=== PATIENT | female | born 1965 | race Caucasian/White ===

== ENCOUNTER → 2021-10-28 | Outpatient (REF) | payer OTHER ==
[2021-10-28 16:41] LABS: HEMOGLOBIN A1c 5.8 %
== END ==
LOC: M SFHCWOUN 15:39
PROVIDERS: ATTEND Surgery
DX: I87.311 Chronic venous hypertension (idiopathic) with ulcer of right lower extremity (principal)

== ENCOUNTER → 2021-11-18 | Outpatient (CLI) | payer BC, OTHER | LOC: EDUNIT# 11-12 14:30 → M RAD 14:07 | PROVIDERS: ATTEND Surgery | DX: I87.313 Chronic venous hypertension (idiopathic) with ulcer of bilateral lower extremity (principal); L97.822 Non-pressure chronic ulcer of other part of left lower leg with fat layer exposed; L97.812 Non-pressure chronic ulcer of other part of right lower leg with fat layer exposed ==

== ENCOUNTER → 2022-02-09 | Outpatient (CLI) | payer BC, OTHER ==
[2022-02-09 17:42] LABS: BASO # 0.1 10^3/uL (0.0-0.2); BASO % 0.7 % (0.0-1.0); EOS # 0.1 10^3/uL (0.0-0.5); EOS % 1.3 % (0.0-3.0); LYMPH # 2.4 10^3/uL (1.5-5.0); LYMPH % 31.5 % (24.0-44.0); MEAN CORPUSCULAR HEMOGLOBIN 26.2 pg (27.0-33.0); MEAN CORPUSCULAR VOLUME 87.2 fl (80.0-96.0); MONO # 0.8 10^3/uL (0.0-0.8); MONO % 10.2 % (2.0-8.0); NEUTROPHILS # 4.3 10^3/uL (1.5-8.5); NEUTROPHILS % 55.9 % (36.0-66.0); PLATELET COUNT, AUTOMATED 206 10^3/uL (150-450); RED BLOOD COUNT 3.44 10^6/uL (4.00-5.40); WHITE BLOOD COUNT 7.6 10^3/uL (4.0-10.0)
[2022-02-09 17:54] LABS: HEMOGLOBIN A1c 6.7 %
[2022-02-09 17:59] LABS: ALBUMIN 3.1 GM/DL (3.2-5.2); BILIRUBIN,TOTAL 0.2 MG/DL (0.2-1.0); CALCIUM LEVEL 8.1 MG/DL (8.5-10.1); CREATININE FOR GFR 1.31 MG/DL (0.55-1.30); FREE T4 0.91 NG/DL (0.76-1.46); GLOMERULAR FILTRATION RATE 44.9 (>51); PERCENT SATURATION 13.1 % (13.2-45.0); POTASSIUM SERUM 4.3 MEQ/L (3.5-5.1); THYROID STIMULATING HORMONE 0.771 uIU/ML (0.358-3.740); TOTAL PROTEIN 6.7 GM/DL (6.4-8.2)
== END ==
LOC: M PLALAB 14:44
PROVIDERS: ATTEND Physician Assistant
DX: E11.622 Type 2 diabetes mellitus with other skin ulcer (principal)

== ENCOUNTER 2022-02-24 09:03 | Outpatient (CLI) | payer BC, OTHER ==
[~2022-02-24] VITALS: Ht 172.7 cm; Wt 73.0 kg
[~2022-02-24 09:03] MED LIST: ALBUTEROL SULFATE 2.5 MG/0.5 ML INH NEB SOLN INH PRN; EPINEPHrine INJ 1 MG/ML 1ML AMP IM PRN; IRON SUCROSE 175 MG in NS 100 ML IV ONE; NS 1,000 ML IV SCH; diphenhydrAMINE 50MG/ML VIAL (J1200) IV PRN; methylPREDNISolone 125MG 2ML VIAL IV PRN
[2022-02-24 09:20] VITALS: BP 164/77
[2022-02-24] MEDS ORDERED: METF750T36 PO (09:53)
[2022-02-24] MEDS ORDERED: BUPR1SUB5 SL (09:53)
[2022-02-24] MEDS ORDERED: DIAZ2TAB PO ×2 (09:53)
[2022-02-24] MEDS ORDERED: XARE20TA PO (09:53)
[2022-02-24] MEDS ORDERED: GABA-282 PO (09:53)
[2022-02-24] MEDS ORDERED: ATOR1TAB19 PO (09:53)
[2022-02-24] MEDS ORDERED: PANT40TA29 PO (09:53)
[2022-02-24] MEDS ORDERED: CITA20TA6 PO (09:54)
[2022-02-24 10:35] VITALS: BP 145/70
[2022-02-24 11:01] VITALS: BP 140/67
== END 2022-02-24 11:05 | disposition home or self-care (01) ==
LOC: M INFU 09:03
PROVIDERS: ATTEND Physician Assistant
DX: D50.9 Iron deficiency anemia, unspecified (principal); Z88.0 Allergy status to penicillin; Z91.041 Radiographic dye allergy status
CPT/HCPCS: 96365; J1756

== ENCOUNTER → 2022-03-10 | Outpatient (CLI) | payer BC, OTHER ==
[~2022-03-10] MED LIST changes: -ALBUTEROL SULFATE 2.5 MG/0.5 ML INH NEB SOLN INH PRN; +ATOR1TAB19 PO; +BUPR1SUB5 SL; +CITA20TA6 PO; +DIAZ2TAB PO; -EPINEPHrine INJ 1 MG/ML 1ML AMP IM PRN; +GABA-282 PO; -IRON SUCROSE 175 MG in NS 100 ML IV ONE; +METF750T36 PO; -NS 1,000 ML IV SCH; +PANT40TA29 PO; +XARE20TA PO; -diphenhydrAMINE 50MG/ML VIAL (J1200) IV PRN; -methylPREDNISolone 125MG 2ML VIAL IV PRN
== END ==
LOC: M RAD 14:17
PROVIDERS: ATTEND Surgery
DX: L97.812 Non-pressure chronic ulcer of other part of right lower leg with fat layer exposed (principal)

== ENCOUNTER → 2022-04-06 | Outpatient (REF) | payer OTHER | LOC: M SFHCPLAZ 09:13 | PROVIDERS: ATTEND Physician Assistant | DX: E53.8 Deficiency of other specified B group vitamins (principal) ==

== ENCOUNTER → 2022-04-06 | Outpatient (CLI) | payer BC, OTHER ==
[2022-04-06 14:59] LABS: BASO % 0.5 % (0.0-1.0); EOS # 0.1 10^3/uL (0.0-0.5); EOS % 1.2 % (0.0-3.0); HEMATOCRIT 24.6 % (36.0-47.0); HEMOGLOBIN 7.4 g/dl (12.0-15.5); LYMPH # 1.7 10^3/uL (1.5-5.0); LYMPH % 21.4 % (24.0-44.0); MEAN CORPUSCULAR HEMOGLOBIN 26.8 pg (27.0-33.0); MEAN CORPUSCULAR HGB CONC 30.1 g/dl (32.0-36.5); MEAN CORPUSCULAR VOLUME 89.1 fl (80.0-96.0); MONO # 0.7 10^3/uL (0.0-0.8); MONO % 8.8 % (2.0-8.0); NEUTROPHILS # 5.3 10^3/uL (1.5-8.5); NEUTROPHILS % 67.7 % (36.0-66.0); PLATELET COUNT, AUTOMATED 216 10^3/uL (150-450); RED BLOOD COUNT 2.76 10^6/uL (4.00-5.40); WHITE BLOOD COUNT 7.8 10^3/uL (4.0-10.0)
[2022-04-06 16:16] LABS: IRON (FE) 59 UG/DL (50-170)
[2022-04-06 16:50] LABS: VITAMIN B12 LEVEL 1102 PG/ML (247-911)
== END ==
LOC: M PLALAB 09:43
PROVIDERS: ATTEND Physician Assistant
DX: E53.8 Deficiency of other specified B group vitamins (principal)

== ENCOUNTER → 2022-04-26 | Outpatient (REF) | payer BC, OTHER ==
[2022-04-26 18:12] LABS: BASO % 0.7 % (0.0-1.0); EOS # 0.1 10^3/uL (0.0-0.5); EOS % 1.5 % (0.0-3.0); HEMATOCRIT 25.8 % (36.0-47.0); HEMOGLOBIN 7.7 g/dl (12.0-15.5); LYMPH # 1.5 10^3/uL (1.5-5.0); LYMPH % 25.2 % (24.0-44.0); MEAN CORPUSCULAR HEMOGLOBIN 26.9 pg (27.0-33.0); MEAN CORPUSCULAR HGB CONC 29.8 g/dl (32.0-36.5); MEAN CORPUSCULAR VOLUME 90.2 fl (80.0-96.0); MONO # 0.6 10^3/uL (0.0-0.8); MONO % 9.5 % (2.0-8.0); NEUTROPHILS # 3.7 10^3/uL (1.5-8.5); NEUTROPHILS % 62.8 % (36.0-66.0); PLATELET COUNT, AUTOMATED 215 10^3/uL (150-450); RED BLOOD COUNT 2.86 10^6/uL (4.00-5.40); WHITE BLOOD COUNT 5.9 10^3/uL (4.0-10.0)
[2022-04-26 18:47] LABS: FERRITIN 61 NG/ML (8-252); IRON (FE) 45 UG/DL (50-170); PERCENT SATURATION 15.9 % (13.2-45.0); TOTAL IRON BINDING CAPACITY 283 UG/DL (250-450)
[2022-04-26 19:17] LABS: VITAMIN B12 LEVEL 1380 PG/ML
[2022-04-26 19:19] LABS: FOLATE > 24.0 NG/ML
== END ==
LOC: M PLALAB 17:43
PROVIDERS: ATTEND Physician Assistant
DX: D64.9 Anemia, unspecified (principal)

== ENCOUNTER 2022-05-03 13:00 | Outpatient (CLI) | payer BC, OTHER ==
[2022-05-03 13:00] VITALS: BP 135/88
[~2022-05-03 13:00] MED LIST changes: +ALBUTEROL SULFATE 2.5 MG/0.5 ML INH NEB SOLN INH PRN; +EPINEPHrine INJ 1 MG/ML 1ML AMP IM PRN; +IRON SUCROSE 175 MG in NS 100 ML IV ONE; +IRON SUCROSE 25 MG in NS 23.75 ML IV ONE; +NS 1,000 ML IV SCH; +diphenhydrAMINE 50MG/ML VIAL IV PRN; +methylPREDNISolone 125MG 2ML VIAL IV PRN
[2022-05-03 14:18] VITALS: BP 103/50
[2022-05-03 15:40] VITALS: BP 128/58
== END 2022-05-03 15:40 | disposition home or self-care (01) ==
LOC: M INFU 13:00
PROVIDERS: ATTEND Physician Assistant
DX: D50.9 Iron deficiency anemia, unspecified (principal); Z91.041 Radiographic dye allergy status; Z88.0 Allergy status to penicillin
CPT/HCPCS: 96365; J1756

== ENCOUNTER → 2022-05-10 | Outpatient (POV) | payer BC, OTHER ==
[~2022-05-10] VITALS: Ht 172.7 cm; Wt 68.2 kg
[~2022-05-10] MED LIST changes: -ALBUTEROL SULFATE 2.5 MG/0.5 ML INH NEB SOLN INH PRN; -EPINEPHrine INJ 1 MG/ML 1ML AMP IM PRN; -IRON SUCROSE 175 MG in NS 100 ML IV ONE; -IRON SUCROSE 25 MG in NS 23.75 ML IV ONE; -NS 1,000 ML IV SCH; -diphenhydrAMINE 50MG/ML VIAL IV PRN; -methylPREDNISolone 125MG 2ML VIAL IV PRN
[2022-05-10 08:00] VITALS: BP 146/79
== END ==
LOC: M IRPOV 07:49
PROVIDERS: ATTEND Radiology Diagnostic Radiology
DX: E11.622 Type 2 diabetes mellitus with other skin ulcer (principal); L97.819 Non-pressure chronic ulcer of other part of right lower leg with unspecified severity; I87.012 Postthrombotic syndrome with ulcer of left lower extremity; E11.40 Type 2 diabetes mellitus with diabetic neuropathy, unspecified; E78.5 Hyperlipidemia, unspecified; I25.10 Atherosclerotic heart disease of native coronary artery without angina pectoris; K21.9 Gastro-esophageal reflux disease without esophagitis; Z79.01 Long term (current) use of anticoagulants; Z79.84 Long term (current) use of oral hypoglycemic drugs; Z79.899 Other long term (current) drug therapy; Z86.718 Personal history of other venous thrombosis and embolism; Z88.0 Allergy status to penicillin; Z91.041 Radiographic dye allergy status; Z95.5 Presence of coronary angioplasty implant and graft; Z98.84 Bariatric surgery status

== ENCOUNTER → 2022-05-16 | Outpatient (CLI) | payer BC, OTHER | LOC: M RAD 11:43 | PROVIDERS: ATTEND Internal Medicine Cardiovascular Disease | DX: R09.89 Other specified symptoms and signs involving the circulatory and respiratory systems (principal) ==

== ENCOUNTER → 2022-06-16 | Outpatient (REF) | payer OTHER ==
[~2022-06-16] MED LIST changes: +ALBU8.5H; +FAMO40TA3 PO; +MULT1TAB16 PO; +NALO25TA; +RIVA1.5C23
== END ==
LOC: M SFHCPLAZ 11:05
PROVIDERS: ATTEND Physician Assistant
DX: L97.822 Non-pressure chronic ulcer of other part of left lower leg with fat layer exposed (principal); S81.802A Unspecified open wound, left lower leg, initial encounter

== ENCOUNTER → 2022-07-26 | Outpatient (CLI) | payer BC, OTHER, MEDICARE | LOC: M RAD 06:36 | PROVIDERS: ATTEND Physician Assistant | DX: I87.332 Chronic venous hypertension (idiopathic) with ulcer and inflammation of left lower extremity (principal); L97.929 Non-pressure chronic ulcer of unspecified part of left lower leg with unspecified severity ==

== ENCOUNTER → 2022-08-05 | Outpatient (CLI) | payer BC, OTHER, MEDICARE ==
[2022-08-05 17:26] LABS: BASO % 0.7 % (0.0-1.0); EOS # 0.1 10^3/uL (0.0-0.5); EOS % 1.8 % (0.0-3.0); HEMATOCRIT 29.6 % (36.0-47.0); HEMOGLOBIN 8.7 g/dl (12.0-15.5); LYMPH # 1.3 10^3/uL (1.5-5.0); LYMPH % 23.6 % (24.0-44.0); MEAN CORPUSCULAR HEMOGLOBIN 26.3 pg (27.0-33.0); MEAN CORPUSCULAR HGB CONC 29.4 g/dl (32.0-36.5); MEAN CORPUSCULAR VOLUME 89.4 fl (80.0-96.0); MONO # 0.6 10^3/uL (0.0-0.8); NEUTROPHILS # 3.4 10^3/uL (1.5-8.5); NEUTROPHILS % 62.4 % (36.0-66.0); PLATELET COUNT, AUTOMATED 165 10^3/uL (150-450); RED BLOOD COUNT 3.31 10^6/uL (4.00-5.40); WHITE BLOOD COUNT 5.5 10^3/uL (4.0-10.0)
[2022-08-05 17:46] LABS: BILIRUBIN,TOTAL 0.2 MG/DL (0.3-1.2); CALCIUM LEVEL 8.1 MG/DL (8.5-10.1); CREATININE FOR GFR 1.06 MG/DL (0.55-1.30); GLOMERULAR FILTRATION RATE 57.1 (>51); HEMOGLOBIN A1c 6.7 % (4.0-6.0); PERCENT SATURATION 10.9 % (13.2-45.0); POTASSIUM SERUM 5.2 MMOL/L (3.5-5.1); TOTAL PROTEIN 6.5 G/DL (5.7-8.2)
== END ==
LOC: M PLALAB 16:24
PROVIDERS: ATTEND Physician Assistant
DX: E61.1 Iron deficiency (principal); E11.622 Type 2 diabetes mellitus with other skin ulcer

== ENCOUNTER 2022-08-11 11:24 | Outpatient (CLI) | payer BC, OTHER, MEDICARE ==
[~2022-08-11] VITALS: Ht 172.7 cm; Wt 88.0 kg
[~2022-08-11 11:24] MED LIST changes: +ALBUTEROL SULFATE 2.5MG/0.5ML INH NEB SOLN INH PRN; +EPINEPHrine INJ 1 MG/ML 1ML AMP IM PRN; +diphenhydrAMINE 50MG/ML VIAL IV PRN; +methylPREDNISolone 125MG 2ML VIAL IV PRN
[2022-08-11] MEDS ORDERED: NS IV ONE (11:30)
[2022-08-11] MEDS ORDERED: IRON SUCROSE 25 MG in NS 23.75 ML IV ONE (11:30)
[2022-08-11] MEDS ORDERED: IRON SUCROSE IV ONE (11:30)
[2022-08-11] MEDS ORDERED: NS 1,000 ML IV SCH (11:30)
[2022-08-11 11:55] VITALS: BP 115/56
[2022-08-11 13:20] VITALS: BP 160/76
[2022-08-11 14:15] VITALS: BP 149/71
== END 2022-08-11 14:20 | disposition home or self-care (01) ==
LOC: M INFU 11:24
PROVIDERS: ATTEND Physician Assistant
DX: E61.1 Iron deficiency (principal); E53.8 Deficiency of other specified B group vitamins; Z88.0 Allergy status to penicillin; Z91.041 Radiographic dye allergy status
CPT/HCPCS: 96365; J1756

== ENCOUNTER → 2022-11-25 | Outpatient (CLI) | payer BC, OTHER, MEDICARE ==
[~2022-11-25] MED LIST changes: -ALBUTEROL SULFATE 2.5MG/0.5ML INH NEB SOLN INH PRN; -EPINEPHrine INJ 1 MG/ML 1ML AMP IM PRN; -diphenhydrAMINE 50MG/ML VIAL IV PRN; -methylPREDNISolone 125MG 2ML VIAL IV PRN
== END ==
LOC: M PLAIMG 16:03
PROVIDERS: ATTEND Physician Assistant
DX: M79.672 Pain in left foot (principal)

== ENCOUNTER → 2022-12-02 | Outpatient (CLI) | payer OTHER | LOC: M PLAIMG 09:45 | PROVIDERS: ATTEND Physician Assistant | DX: M25.572 Pain in left ankle and joints of left foot (principal) ==